=== PATIENT | male | born 1945 | race Hispanic/Latino ===

== ENCOUNTER → 2018-02-02 | Outpatient (CLI) | payer OTHER, MEDICARE ==
[~2018-02-02] MED LIST: IOPAMIDOL 370 MG/ML 200 ML INFUS..BTL INJ ONE; SODIUM CHLORIDE 0.9% 50ML 50 ML ONE
[2018-02-02 08:34] LABS: BLOOD UREA NITROGEN 8 mg/dL (7-26); BUN/CREATININE RATIO 9 (6-25); CREATININE, SERUM 0.91 mg/dL (0.72-1.25); EST GLOMERULAR FILTRATION RATE > 60 ML/MIN (60-)
--- NOTE | 2018-02-02 09:29 | Diagnostic Imaging Report ---
This report includes an Addendum and supersedes previous reports for this exam. PROCEDURE:CT PELVIS WITH CONTRAST COMPARISON:None. INDICATIONS:MALIGNANT NEOPLASM OF PROSTATE TECHNIQUE:Multidetector imaging of the abdomen and pelvis was performed from the level of the diaphragm to below the pubic symphysis pre- and post IV administration of 100 cc Omnipaque-300. Oral Redicat was also given. Scanning during precontrast, early, and delayed phases was performed. Coronal and sagittal multiplanar reformations were obtained. FINDINGS: The prostate is enlarged measuring 4.8 cm. The bladder is unremarkable. There is no evidence of free fluid or adenopathy. Atherosclerotic changes of the visualized abdominal aorta. The visualized small and large bowel is unremarkable. Degenerative changes are present in the lumbar spine. Subcentimeter sclerotic lesion in the left femoral neck is too small to characterize (709 HU; series 2, image 36). No suspicious lytic or blastic lesions. No evidence of fracture. CONCLUSION: No specific evidence of metastasis in the pelvis. Subcentimeter sclerotic focus in the left proximal femur is too small to characterize but may represent a bone island. Follow-up per clinic protocol. Prostatomegaly. Dictated by: HAYDEN HICKS M.D. on 02/02/2018 at 9:35 Electronically approved by: HAYDEN HICKS M.D. on 02/02/2018 at 9:35 ADDENDUM: The technique section is addended as follows: Multidetector imaging of the pelvis was performed from the level of the lower abdomen to the pubic symphysis after IV administration of 100 cc of Isovue 370 and oral administration of 450 cc of water. Coronal and sagittal multiplanar reformations were obtained. Dictated by: HAYDEN HICKS M.D. on 02/02/2018 at 9:38 Electronically approved by: HAYDEN HICKS M.D. on 02/02/2018 at 9:38
--- NOTE | 2018-02-02 13:23 | Diagnostic Imaging Report ---
Bone Scan, delayed phase INDICATION: Elevated PSA; prostate cancer; staging. COMPARISON: CT pelvis 02/02/2018 REPORT: Approximately 3 hours following intravenous administration of 25 mCi of Tc-99m MDP, delayed total body images in the anterior and posterior projections and selected spot images were obtained. Degenerative changes are noted in the cervical spine. Otherwise, distribution of tracer activity is unremarkable throughout the skeletal system. No abnormal accumulation of tracer is seen in the soft tissues or urinary tract. IMPRESSION: No scan evidence of metastatic bone disease. No osteoblastic lesions are seen in the femurs to correspond to the sclerotic lesions seen on CT scan. Signed by: Dr. Petty Hall M.D. on 02/02/2018 1:20 PM
== END ==
LOC: NM 07:03
PROVIDERS: ATTEND Urology
DX: C61 Malignant neoplasm of prostate (principal); R97.20 Elevated prostate specific antigen [PSA]
CPT/HCPCS: 36415; 72193; 78306; 82565; 84520; A9503; Q9967

== ENCOUNTER → 2021-04-29 | Outpatient (CLI) | payer MEDICARE ==
[~2021-04-29] MED LIST changes: +IOPAMIDOL 300MG/ML 100 ML INFUS..BTL IV ONE; -IOPAMIDOL 370 MG/ML 200 ML INFUS..BTL INJ ONE; -SODIUM CHLORIDE 0.9% 50ML 50 ML ONE
== END ==
LOC: US 09:43
PROVIDERS: ATTEND Urology
DX: C61 Malignant neoplasm of prostate (principal); R39.14 Feeling of incomplete bladder emptying; N50.0 Atrophy of testis
CPT/HCPCS: 74450; 76870; 93976; Q9967

== ENCOUNTER → 2021-08-27 | Outpatient (CLI) | payer MEDICARE | LOC: NM 07:39 | PROVIDERS: ATTEND Urology | DX: C61 Malignant neoplasm of prostate (principal) | CPT/HCPCS: 78306; A9503; A9570 ==

== ENCOUNTER 2022-11-13 11:35 | Emergency (ER) | payer MEDICARE ==
[~2022-11-13] VITALS: Ht 167.6 cm; Wt 75.7 kg
[2022-11-13 11:35] VITALS: O2SAT 98
[2022-11-13 12:46] LABS: CLARITY,URINE CLEAR (CLEAR); COLOR,URINE YELLOW (YELLOW); KETONES,URINE NEGATIVE (NEGATIVE); LEUKOCYTE ESTERASE ,URINE NEGATIVE (NEGATIVE); NITRITE,URINE NEGATIVE (NEGATIVE); PROTEIN,URINE DIPSTICK NEGATIVE (NEGATIVE); URINE UROBILINOGEN 0.2 mg/dL (0.2 - 1)
[2022-11-13 12:47] LABS: BACTERIA,URINE FEW /HPF; EPITHELIAL CELLS,URINE FEW /LPF; RBC,URINE 0-5 /HPF (0-5); URIC ACID CRYSTALS,URINE MODERATE (FEW); WBC,URINE (MAN) 0-5 /HPF (0-5)
== END 2022-11-13 12:31 | disposition home or self-care (01) ==
LOC: ER 11:49
DX: R30.0 Dysuria (principal); N39.0 Urinary tract infection, site not specified; I10 Essential (primary) hypertension
CPT/HCPCS: 81001; 87086; 99283

== ENCOUNTER → 2024-05-26 | Outpatient (REF) | payer MEDICARE ==
[~2024-05-26] MED LIST changes: +CEFDINIR300 MG PO; -IOPAMIDOL 300MG/ML 100 ML INFUS..BTL IV ONE
== END ==
LOC: CT 10:52
PROVIDERS: ATTEND Internal Medicine Critical Care Medicine
DX: R91.8 Other nonspecific abnormal finding of lung field (principal)
CPT/HCPCS: 71250